=== PATIENT | female | born 1965 | race Caucasian/White ===

== ENCOUNTER 2024-12-11 18:07 | Emergency (ER) | payer OTHER ==
[~2024-12-11] VITALS: Ht 172.7 cm; Wt 80.0 kg
[2024-12-11 18:18] VITALS: O2SAT 98
[2024-12-11] MEDS ORDERED: IBUP-2029 MT (19:34)
[2024-12-11] MEDS: IBUPROFEN 600MG TABLET PO ONE (20:00)
[2024-12-11] MEDS: ACETAMINOPHEN 325MG TABLET PO ONE (20:01)
[2024-12-11] MEDS: TETANUS, DIPHTHERIA, PERTUSSIS VAC/PF 0.5ML (>10YR OLD) IM ONE (20:03)
[2024-12-11 20:13] VITALS: BP 153/71; PULSE 75; RESP 18; TEMP 36.5; O2SAT 100
[2024-12-11] MEDS: BACITRACIN ZINC OINT UDPKT TOP ONE (20:35)
== END 2024-12-11 20:49 | disposition home or self-care (01) ==
LOC: ER 18:07
DX: S50.01XA Contusion of right elbow, initial encounter (principal); W19.XXXA Unspecified fall, initial encounter; Y93.89 Activity, other specified; Y92.89 Other specified places as the place of occurrence of the external cause; Y99.8 Other external cause status; I10 Essential (primary) hypertension
CPT/HCPCS: 73030; 73070; 73560; 90715; 90471; 99284; Z7610